=== PATIENT | female | born 1985 | race Caucasian/White ===

== ENCOUNTER 2020-09-16 07:15 | Outpatient (CLI) | payer MEDICAID ==
[2020-09-16] MEDS ORDERED: GADOTERATE 10 MMOL/20 ML VIAL ONE (08:00)
== END 2020-09-16 23:59 | disposition home or self-care (01) ==
LOC: CFH 07:15
PROVIDERS: ATTEND Family Medicine
DX: N60.82 Other benign mammary dysplasias of left breast (principal); M54.5 Low back pain; R23.4 Changes in skin texture; Q85.00 Neurofibromatosis, unspecified
CPT/HCPCS: 70553; 72110; 76642; 77062; 77066; A9575; G0279